=== PATIENT | male | born 1940 | race Caucasian/White ===

== ENCOUNTER → 2017-06-30 | Day surgery (SDC) | payer OTHER, MEDICARE ==
[~2017-06-30] VITALS: Ht 170.2 cm; Wt 86.2 kg
[~2017-06-30] MED LIST: 0.9% Sodium Chloride 1,000 ML IV PRN; HYDR1TAB69 PO; LEVO112T4 PO; Lactated Ringer's 1,000 ML IV ONE; Sodium Chloride LOK Flush 10 mL Syringe IV PRN; fentaNYL-PF 50 mCg/mL 2 mL Inj IVPUSH PRN
[2017-06-30 07:40] VITALS: BP 106/78; PULSE 77; O2SAT 92
--- NOTE | 2017-06-30 08:17 | PCM.ENDCOL ---
Colonoscopy Date of Service: Jun 30, 2017 Physician Harinder Chaudhary MD Pre Procedure Diagnosis: Screening and history of polyps Post Procedure Dx & Findings: Polyp hemorrhoids diverticuliti Procedure Colonoscopy PROCEDURE IN DETAIL: Prep adequate Withdrawal time 9 minutes After unremarkable rectal examination the Olympus video colonoscope was inserted patient's anal canal and was advanced to cecum. Landmarks were identified including the ileocecal valve and appendiceal orifice. Scope was withdrawn systematically. Visualized colonic mucosa showed healthy shiny mucosa with normal healthy-appearing vasculature. In the ascending colon there was a 4 mm polyp which was removed completely using cold snare. In the sigmoid colon there are several small to medium sized diverticuli. In the rectum retroflexion was done which showed hemorrhoids. Anal canal was inspected carefully on the way out and hemorrhoids noted. Impression History of polyps Polyp 1 status post complete removal Diverticuli Hemorrhoids Recommendation Repeat colonoscopy 5 years Diverticular diet Presedation Assessment Risks and Benefits Informed consent was obtained from the patient after all risks and benefits including but not limited to drug reaction, infection, pain, bleeding, perforation, as well as alternatives were discussed. Patient monitoring Continuous pulse oximetry, cardiac monitoring, blood pressure monitoring, IV access, and oxygen at 2L per nasal cannula. Periprocedural Fentanyl: Fentanyl 100mcg Incrementally Midazolam: Midazolam 4mg Incrementally Complications There were no periprocedural complications identified. Post Procedure Plan Post Procedure Recommendations 1. Restrict activities today. 2. Resume normal activities in the morning. 3. Resume medications. 4. Patient informed of normal post procedure side effects as bloating, drowsiness, blood streaking in the stool. 5. average risk CRCS. If colon polyps come back as: -Hyperplastic- can repeat colonoscopy in 10 years -Tubular adenoma- repeat colonoscopy in 5 years -Tubulovillous/villous adenoma- repeat colonoscopy in 3 years -If any dysplasia- return to clinic as soon as possible 6. Please don't hesitate to call me with any questions. Harinder Chaudhary MD Jun 30, 2017 08:17
[2017-06-30 08:25] VITALS: BP 80/46; PULSE 77; O2SAT 93
[2017-06-30 08:41] VITALS: BP 85/48; PULSE 74; RESP 16; O2SAT 95
[2017-06-30 08:45] VITALS: BP 93/78; PULSE 68; RESP 16; O2SAT 92
--- NOTE | 2017-07-01 14:36 | PATH ---
SURGICAL PATHOLOGY Attending Physician:Harinder Chaudhary M.D. CASE STATUS: Signed Out PATIENT NAME: EUGENE TATE PID: [id number] : 1940 DATE COLLECTED:06/30/2017 21:40 SPECIMEN: Colon, Polyp CLINICAL HISTORY: 1). ASCENDING COLON POLYP FINAL DIAGNOSIS: Ascending Colon, Polyp, Biopsy: Portions of tubular adenoma x2; negative for high-grade dysplasia. ICD10: K63.5 GROSS DESCRIPTION: The specimen is received in one formalin filled container labeled with the patient's name, sublabeled "ascending colon polyp" and consists of 2 portions of tissue which aggregate to 0.4 x 0.3 x 0.3 CM. The specimen is entirely submitted in one cassette. 06/30/2017DC ICD-9 CODES: CPT CODES: 1: 07387 Electronically Signed Out Veronica Velasquez MD [facility] [address], [place] [address] Technical component performed at [facility], [address] [place] [address] [address], [place], [address]
== END | disposition home or self-care (01) ==
LOC: END 00:29
PROVIDERS: ATTEND Internal Medicine
DX: Z12.11 Encounter for screening for malignant neoplasm of colon (principal); D12.2 Benign neoplasm of ascending colon; K57.30 Diverticulosis of large intestine without perforation or abscess without bleeding; K64.8 Other hemorrhoids; E64.8 Sequelae of other nutritional deficiencies; N40.0 Benign prostatic hyperplasia without lower urinary tract symptoms; N18.2 Chronic kidney disease, stage 2 (mild); E66.3 Overweight; R10.9 Unspecified abdominal pain; D75.1 Secondary polycythemia; Z79.899 Other long term (current) drug therapy
CPT/HCPCS: 45385; 99153; G0500; J2250; J3010; J7030